=== PATIENT | female | born 1960 | race Caucasian/White ===

== ENCOUNTER → 2016-06-08 | Outpatient (CLI) | payer BC ==
[~2016-06-08] MED LIST: AMBIEN CR 12.12.5 MG PO; FLONASE NASAL S16 GM NS; HRT BASE; VALIUM 5MG T5 MG/TAB PO; WELLBUTRIN XL300 M1 PO; ZYRTEC 10MG10 MG PO
== END ==
LOC: MC.RAD 10:58
DX: Z12.31 Encounter for screening mammogram for malignant neoplasm of breast (principal)

== ENCOUNTER → 2016-11-24 | Outpatient (CLI) | payer BC | LOC: COL.RAD 10:43 | DX: R87.619 Unspecified abnormal cytological findings in specimens from cervix uteri (principal); R68.82 Decreased libido; G47.00 Insomnia, unspecified; E31.9 Polyglandular dysfunction, unspecified; R53.82 Chronic fatigue, unspecified; Z90.721 Acquired absence of ovaries, unilateral; Z79.890 Hormone replacement therapy ==

== ENCOUNTER 2017-01-31 14:06 | Emergency (ER) | payer BC ==
[~2017-01-31] VITALS: Ht 170.2 cm; Wt 88.6 kg
[2017-01-31 14:08] VITALS: BP 141/82; TEMP 99.1
[2017-01-31 15:41] VITALS: PULSE 80
== END 2017-01-31 15:41 | disposition home or self-care (01) ==
LOC: COL.ER 14:06
DX: M79.605 Pain in left leg (principal)

== ENCOUNTER → 2017-02-12 | Outpatient (CLI) | payer BC | LOC: COL.VAS 14:36 | DX: I36.1 Nonrheumatic tricuspid (valve) insufficiency (principal); I27.20 Pulmonary hypertension, unspecified; I51.7 Cardiomegaly; R60.0 Localized edema ==

== ENCOUNTER → 2017-06-15 | Outpatient (CLI) | payer BC | LOC: MC.RAD 10:02 | DX: Z12.31 Encounter for screening mammogram for malignant neoplasm of breast (principal) ==

== ENCOUNTER 2018-02-17 08:30 | Outpatient (RCR) | payer BC | END 2018-03-09 09:10 | disposition home or self-care (01) | LOC: WSOT 08:30 | DX: M25.531 Pain in right wrist (principal); M79.644 Pain in right finger(s) ==

== ENCOUNTER → 2018-07-05 | Outpatient (CLI) | payer BC | LOC: MC.RAD 13:22 | DX: Z12.31 Encounter for screening mammogram for malignant neoplasm of breast (principal) ==

== ENCOUNTER → 2018-10-07 | Outpatient (CLI) | payer BC | LOC: COL.RAD 14:45 | DX: R10.9 Unspecified abdominal pain (principal) ==

== ENCOUNTER → 2018-10-07 | Outpatient (CLI) | payer BC ==
[2018-10-07 13:11] LABS: ALBUMIN 4.2 gm/dL (3.5-5.0); BILIRUBIN,TOTAL 0.4 mg/dL (0.0-1.0); CREATININE, serum 0.89 (0.52-1.25)
[2018-10-07 14:45] LABS: BASO % 0.3 % (0.0-2.0); EOS # 0.1 (0.0-0.7); EOS % 0.9 % (0-4.0); GRAN # 6.5 (1.4-6.5); GRAN % 62.9 % (42.2-75.2); HEMATOCRIT 41.7 % (37.0-47.0); HEMOGLOBIN 14.2 g/dl (12.5-16.0); LYMPH # 3.1 (1.2-3.4); MEAN CELL VOLUME 88 fl (80.0-100.0); MEAN CORPUSCULAR HEMOGLOBIN 30 pg (27.0-31.0); MEAN CORPUSCULAR HGB CONC 34 g/dl (33.0-37.0); MEAN PLATELET VOLUME 9.7 fl (7.4-10.4); MONO # 0.6 (0.1-0.6); MONO % 5.6 % (1.7-9.3); PLATELET COUNT 376 K/mm3 (130-400); RED BLOOD COUNT 4.74 M/mm3 (4.10-5.30); REDCELL DISTRIBUTION WIDTH-CV 13.6 % (11.5-14.5)
== END ==
LOC: COL.LAB 12:23
PROVIDERS: Physician Assistant
DX: R10.811 Right upper quadrant abdominal tenderness (principal)

== ENCOUNTER → 2018-10-24 | Outpatient (CLI) | payer BC | LOC: COL.RAD 08:03 | DX: N95.0 Postmenopausal bleeding (principal); R93.89 Abnormal findings on diagnostic imaging of other specified body structures; R68.82 Decreased libido; F06.30 Mood disorder due to known physiological condition, unspecified; G47.00 Insomnia, unspecified; E31.9 Polyglandular dysfunction, unspecified; E55.9 Vitamin D deficiency, unspecified; F32.4 Major depressive disorder, single episode, in partial remission; Z79.890 Hormone replacement therapy; Z90.721 Acquired absence of ovaries, unilateral ==

== ENCOUNTER → 2019-10-10 | Outpatient (CLI) | payer BC | LOC: MC.RAD 09:27 | DX: Z12.31 Encounter for screening mammogram for malignant neoplasm of breast (principal); Z90.13 Acquired absence of bilateral breasts and nipples ==

== ENCOUNTER → 2020-10-15 | Outpatient (CLI) | payer BC ==
[~2020-10-15] MED LIST changes: +AMBIEN CR6.25 MG PO; +ASPIRIN E.C. 8181 MG PO; +CRESTOR40 MG PO; +ENDOMETRIN100 MG; +ESTRADIOL; +FLONASEALLERGY NS; +MAGNESIUM200 MG PO; +NP THYROID90 MG; +PLAVIX 75MG TAB75 MG PO; +TESTOSTERO; +THE MEDICINE S200 M2 PO; +VALIUM 2MG T2 MG/TAB PO; +VITAMIND3 5000 PO
== END ==
LOC: MC.RAD 09:45
DX: Z12.31 Encounter for screening mammogram for malignant neoplasm of breast (principal)

== ENCOUNTER 2021-01-23 16:13 | Emergency (ER) | payer BC ==
[~2021-01-23] VITALS: Ht 172.7 cm; Wt 90.9 kg
[~2021-01-23 16:13] MED LIST changes: -AMBIEN CR6.25 MG PO; -ASPIRIN E.C. 8181 MG PO; -CRESTOR40 MG PO; -ENDOMETRIN100 MG; -ESTRADIOL; -FLONASEALLERGY NS; -MAGNESIUM200 MG PO; -NP THYROID90 MG; -PLAVIX 75MG TAB75 MG PO; -TESTOSTERO; -THE MEDICINE S200 M2 PO; -VALIUM 2MG T2 MG/TAB PO; -VITAMIND3 5000 PO
[2021-01-23 16:19] VITALS: TEMP 98.5
[2021-01-23 16:34] LABS: BASO # 0.1 K/mm3 (0.0-0.2); BASO % 0.7 % (0.0-2.0); EOS # 0.2 K/mm3 (0.0-0.7); EOS % 2.4 % (0-4.0); GRAN # 4.3 K/mm3 (1.4-6.5); GRAN % 52.4 % (42.2-75.2); HEMOGLOBIN 13.9 g/dl (12.5-16.0); LYMPH # 3.2 K/mm3 (1.2-3.4); MEAN CELL VOLUME 88 fl (80.0-100.0); MEAN CORPUSCULAR HEMOGLOBIN 29 pg (27.0-31.0); MEAN CORPUSCULAR HGB CONC 33 g/dl (33.0-37.0); MEAN PLATELET VOLUME 9.2 fl (7.4-10.4); MONO # 0.5 K/mm3 (0.1-0.6); MONO % 6.3 % (1.7-9.3); PLATELET COUNT 372 K/mm3 (130-400); RED BLOOD COUNT 4.78 M/mm3 (4.10-5.30); REDCELL DISTRIBUTION WIDTH-CV 13.5 % (11.5-14.5)
[2021-01-23] MEDS ORDERED: VALIUM 2MG T2 MG/TAB PO (16:42)
[2021-01-23 16:55] LABS: ALANINE AMINOTRANSFERASE 15 U/L (0-55); ALBUMIN 4.3 gm/dL (3.4-4.8); ALKALINE PHOSPHATASE 52 U/L (0-750); ANION GAP 13 mmol/L (7-16); AST,SGOT 20 U/L (5-34); BILIRUBIN,TOTAL 0.3 mg/dL (0.2-1.2); BLOOD UREA NITROGEN 12 mg/dL (10-20); CALCIUM 9.7 mg/dL (8.4-10.2); CARBON DIOXIDE 21 mmol/L (23-31); CHLORIDE 106 mmol/L (98-107); CREATINE KINASE 36 U/L (29-168); CREATININE, serum 0.85 mg/dL (0.57-1.11); GLUCOSE 100 mg/dL (70-99); POTASSIUM 3.9 mmol/L (3.5-4.5); SODIUM 140 mmol/L (136-145); TOTAL PROTEIN 8.3 gm/dL (6.2-8.1)
[2021-01-23 17:04] LABS: TROPONIN-I < 0.010 ng/mL (0.00-0.033)
[2021-01-23 19:44] VITALS: BP 132/77; PULSE 63
[2021-03-07] MEDS ORDERED: ASPIRIN E.C. 8181 MG PO (10:15)
[2021-03-07] MEDS ORDERED: PLAVIX 75MG TAB75 MG PO (10:15)
[2021-03-07] MEDS ORDERED: CRESTOR40 MG PO (10:16)
[2021-03-07] MEDS ORDERED: FLONASEALLERGY NS (10:16)
[2021-03-07] MEDS ORDERED: NP THYROID90 MG (10:20)
[2021-03-07] MEDS ORDERED: AMBIEN CR6.25 MG PO (10:20)
[2021-03-07] MEDS ORDERED: TESTOSTERO (10:22)
[2021-03-07] MEDS ORDERED: ESTRADIOL (10:22)
[2021-03-07] MEDS ORDERED: MAGNESIUM200 MG PO (10:23)
[2021-03-07] MEDS ORDERED: THE MEDICINE S200 M2 PO (10:23)
[2021-03-07] MEDS ORDERED: VITAMIND3 5000 PO (10:24)
[2021-03-07] MEDS ORDERED: ENDOMETRIN100 MG (10:28)
== END 2021-01-23 19:44 | disposition home or self-care (01) ==
LOC: COL.ER 16:13
PROVIDERS: Emergency Medicine
DX: R07.2 Precordial pain (principal); R06.02 Shortness of breath; J45.909 Unspecified asthma, uncomplicated; Z79.899 Other long term (current) drug therapy
CPT/HCPCS: Q9967

== ENCOUNTER → 2021-02-21 | Outpatient (CLI) | payer BC ==
[~2021-02-21] MED LIST changes: +AMBIEN CR6.25 MG PO; +ASPIRIN E.C. 8181 MG PO; +CRESTOR40 MG PO; +ENDOMETRIN100 MG; +ESTRADIOL; +FLONASEALLERGY NS; +MAGNESIUM200 MG PO; +NP THYROID90 MG; +PLAVIX 75MG TAB75 MG PO; +TESTOSTERO; +THE MEDICINE S200 M2 PO; +VALIUM 2MG T2 MG/TAB PO; +VITAMIND3 5000 PO
== END ==
LOC: COL.RAD 13:08
DX: K57.30 Diverticulosis of large intestine without perforation or abscess without bleeding (principal)
CPT/HCPCS: Q9967

== ENCOUNTER → 2021-03-26 | Outpatient (CLI) | payer BC ==
[2021-03-26 19:30] LABS: ANION GAP 11 mmol/L (7-16); BLOOD UREA NITROGEN 8 mg/dL (10-20); CALCIUM 9.5 mg/dL (8.4-10.2); CARBON DIOXIDE 22 mmol/L (23-31); CHLORIDE 106 mmol/L (98-107); CREATININE, serum 0.84 mg/dL (0.57-1.11); GLUCOSE 89 mg/dL (70-99); POTASSIUM 3.6 mmol/L (3.5-4.5); SODIUM 139 mmol/L (136-145)
[2021-03-26 19:47] LABS: THYROID STIMULATING HORMONE 0.106 uIU/mL (0.350-4.940); TROPONIN-I < 0.010 ng/mL (0.00-0.033)
== END ==
LOC: ZCOL.LAB 18:13
PROVIDERS: Internal Medicine Interventional Cardiology
DX: R07.89 Other chest pain (principal)

== ENCOUNTER 2021-09-11 14:00 | Outpatient (RCR) | payer BC | END 2021-09-16 | disposition still patient (30) | LOC: WSOT | DX: G62.9 Polyneuropathy, unspecified (principal) ==

== ENCOUNTER 2021-10-09 15:45 | Outpatient (RCR) | payer BC | END 2021-10-16 | disposition home or self-care (01) | LOC: WSOT | DX: G62.9 Polyneuropathy, unspecified (principal) ==

== ENCOUNTER → 2021-10-16 | Outpatient (CLI) | payer BC | LOC: MC.RAD 15:30 | DX: Z12.31 Encounter for screening mammogram for malignant neoplasm of breast (principal) ==

== ENCOUNTER 2021-10-17 12:33 | Outpatient (RCR) | payer BC | END 2021-11-16 | disposition home or self-care (01) | LOC: WSOT | DX: G62.9 Polyneuropathy, unspecified (principal) ==

== ENCOUNTER → 2021-10-30 | Outpatient (CLI) | payer BC ==
[2021-10-30 15:20] LABS: CALCIUM 9.4 mg/dL (8.4-10.2); CREATININE, serum 0.78 mg/dL (0.57-1.11); POTASSIUM 3.9 mmol/L (3.5-4.5)
== END ==
LOC: COL.RAD 14:26
PROVIDERS: Family Medicine
DX: R42 Dizziness and giddiness (principal)

== ENCOUNTER 2021-12-26 09:32 | Outpatient (CLI) | payer BC ==
[~2021-12-26 09:32] MED LIST changes: -MAGNESIUM200 MG PO; -THE MEDICINE S200 M2 PO; -VITAMIND3 5000 PO
[2021-12-26 10:20] VITALS: BP 124/84; PULSE 107; TEMP 98
[2021-12-26 10:30] VITALS: BP 93/77; PULSE 103
[2021-12-26 10:45] VITALS: BP 121/83; PULSE 95
[2021-12-26 11:00] VITALS: BP 111/68; PULSE 92
[2021-12-26 11:15] VITALS: BP 117/84; PULSE 94
[2021-12-26] MEDS ORDERED: VALTREX1 GM PO (12:15)
[2021-12-26] MEDS ORDERED: LASIX 20MG TABL20 MG PO (12:15)
[2021-12-26] MEDS ORDERED: VALIUM 5MG T5 MG/TAB PO (12:16)
[2021-12-26] MEDS ORDERED: PROAIR HFA0.09 MG/AC IH (12:16)
[2021-12-26] MEDS ORDERED: PREDNISONE20 MG PO (12:17)
[2021-12-26] MEDS ORDERED: VITAMIND3 5000 PO (12:18)
[2021-12-26] MEDS ORDERED: MAGNESIUM200 MG PO (12:18)
[2021-12-26] MEDS ORDERED: THE MEDICINE S200 M2 PO (12:18)
== END 2021-12-26 13:13 ==
LOC: EUO 09:32
DX: U07.1 COVID-19 (principal)
CPT/HCPCS: M0222; Q0222

== ENCOUNTER → 2022-02-13 | Outpatient (CLI) | payer BC ==
[~2022-02-13] MED LIST changes: +LASIX 20MG TABL20 MG PO; +MAGNESIUM200 MG PO; +PREDNISONE20 MG PO; +PROAIR HFA0.09 MG/AC IH; +THE MEDICINE S200 M2 PO; +VALTREX1 GM PO; +VITAMIND3 5000 PO
== END ==
LOC: COL.RAD 08:12
DX: M47.812 Spondylosis without myelopathy or radiculopathy, cervical region (principal); R27.0 Ataxia, unspecified; H93.19 Tinnitus, unspecified ear; G43.809 Other migraine, not intractable, without status migrainosus; R29.898 Other symptoms and signs involving the musculoskeletal system
CPT/HCPCS: A9575

== ENCOUNTER 2022-07-12 21:34 | Observation (INO) | payer BC ==
[~2022-07-12] VITALS: Ht 172.7 cm; Wt 90.9 kg
[2022-07-12 21:56] LABS: BASO # 0.1 K/mm3 (0.0-0.2); BASO % 1.1 % (0.0-2.0); EOS # 0.2 K/mm3 (0.0-0.7); EOS % 2.8 % (0.0-4.0); GRAN # 5.3 K/mm3 (1.4-6.5); GRAN % 66.4 % (42.2-75.2); HEMATOCRIT 40.9 % (37.0-47.0); HEMOGLOBIN 14.3 g/dl (12.5-16.0); LYMPH # 1.7 K/mm3 (1.2-3.4); LYMPH % 21.1 % (20.0-51.0); MEAN CELL VOLUME 86 fl (80.0-100.0); MEAN CORPUSCULAR HEMOGLOBIN 30 pg (27-31); MEAN CORPUSCULAR HGB CONC 35 g/dl (33.0-37.0); MEAN PLATELET VOLUME 9.1 fl (7.4-10.4); MONO # 0.7 K/mm3 (0.1-0.6); MONO % 8.3 % (1.7-9.3); PLATELET COUNT 312 K/mm3 (130-400); RED BLOOD COUNT 4.75 M/mm3 (4.10-5.30); REDCELL DISTRIBUTION WIDTH-CV 13.2 % (11.5-14.5)
[2022-07-12 22:13] LABS: ALANINE AMINOTRANSFERASE 27 U/L (0-55); ALBUMIN 4.3 gm/dL (3.4-4.8); ALKALINE PHOSPHATASE 66 U/L (40-150); ANION GAP 13 mmol/L (7-16); AST,SGOT 22 U/L (5-34); BILIRUBIN,TOTAL 0.3 mg/dL (0.2-1.2); BLOOD UREA NITROGEN 12 mg/dL (10-20); C-REACTIVE PROTEIN 0.29 mg/dL (0.00-0.50); CALCIUM 9.8 mg/dL (8.4-10.2); CARBON DIOXIDE 16 mmol/L (23-31); CHLORIDE 108 mmol/L (98-107); CREATININE, serum 0.94 mg/dL (0.57-1.11); GLUCOSE 119 mg/dL (70-99); POTASSIUM 3.8 mmol/L (3.5-4.5); SODIUM 137 mmol/L (136-145); TOTAL PROTEIN 8.2 gm/dL (6.2-8.1)
[2022-07-12 22:21] LABS: TROPONIN-I < 0.010 ng/mL (0.00-0.033)
[2022-07-12] MEDS ORDERED: CRESTOR20 MG PO (23:52)
[2022-07-12] MEDS ORDERED: PRINIVIL5 MG PO (23:52)
[2022-07-12] MEDS ORDERED: NP THYROID15 MG PO (23:52)
[2022-07-12] MEDS ORDERED: NP THYROID60 MG PO (23:53)
[2022-07-12] MEDS ORDERED: MAG-OX 400400 MG/TAB PO (23:57)
--- NOTE | 2022-07-13 00:57 | NUR ---
pt brought to room via wheelchair from ED. pt ambulates w walker, steady gate. cough is present.
[2022-07-13 01:02] VITALS: BP 147/81; PULSE 125; TEMP 98.2
--- NOTE | 2022-07-13 01:51 | NUR ---
admission assessment complete. pt has a nonproductive cough that has been present for about a week. pt uses a walker due to vertigo symptoms. fall precautions in place. droplet precautions implemented due to parainfluenza. IV fluids infusing into right ac. call light in reach.
[2022-07-13 02:02] LABS: MAGNESIUM 2.2 mg/dL (1.6-2.6); PHOSPHOROUS 3.2 mg/dL (2.3-4.7)
[2022-07-13 02:43] LABS: SQUAMOUS EPITHELIAL 0-2 /hpf (0-10); URINE BACTERIA Rare /hpf (NONE SEEN); URINE RBC 0-2 /hpf (0-2)
[2022-07-13 02:45] LABS: COLLECTION METHOD CLEAN CATCH; URINE APPEARANCE Clear (CLEAR/HAZY); URINE COLOR Yellow (YELLOW)
[2022-07-13 02:46] LABS: URINE BLOOD 1+ (NEGATIVE); URINE GLUCOSE 2+ (NEGATIVE); URINE KETONE 1+ (NEGATIVE); URINE NITRATE Negative (NEGATIVE); URINE PROTEIN(semi-quant) Negative (NEGATIVE); URINE UROBILINOGEN 0.2 E.U/dL (0.2-1.0)
[2022-07-13 03:34] VITALS: BP 125/60; PULSE 105; TEMP 97.9
[2022-07-13 06:18] LABS: HEMOGLOBIN 12.4 g/dl (12.5-16.0); MEAN CELL VOLUME 86 fl (80.0-100.0); MEAN CORPUSCULAR HEMOGLOBIN 30 pg (27-31); MEAN CORPUSCULAR HGB CONC 35 g/dl (33.0-37.0); MEAN PLATELET VOLUME 9.4 fl (7.4-10.4); PLATELET COUNT 283 K/mm3 (130-400); RED BLOOD COUNT 4.14 M/mm3 (4.10-5.30); REDCELL DISTRIBUTION WIDTH-CV 13.2 % (11.5-14.5)
[2022-07-13 06:26] LABS: HEMATOCRIT 35.6 % (37.0-47.0)
[2022-07-13 06:33] LABS: CREATININE, serum 0.8 mg/dL (0.57-1.11); POTASSIUM 3.7 mmol/L (3.5-4.5)
[2022-07-13 07:55] LABS: BAND 2 % (0-10); LYMPHOCYTE 14 % (20.0-51.0); NEUTROPHILS 84 % (42.0-75.2)
[2022-07-13 07:56] LABS: PLATELET ESTIMATE NORMAL (NORMAL)
[2022-07-13 08:22] VITALS: BP 142/82; PULSE 95; TEMP 98
--- NOTE | 2022-07-13 09:00 | NUR ---
Pt. sitting up in bed. Pt. is A&OX3, assessment complete. IV to rt. ac patent. Pt. reports headache paing, giving Tylenol. Pt. denies further needs, call light within reach.
--- NOTE | 2022-07-13 10:03 | NUR ---
ELANA completed intake by phone due to isolation status. Pt confirmed living in [place] at home with spouse Greg Singh who is also listed as NOK. Pt confirmed Greg's contact number being [phone]. Pt reported having about 12 steps throughout the home and reports being independent "normally" minus presence of vertigo. Pt reports having challenges with this since November 08 and as a result has been using a walker to get around. Pt denies any other DME. Pt reports Dr as Dr. Branham and pharmacy as [facility]. Pt denies any issues retrieving medication or financial challenges. Pt does not have DPOA and requested paperwork to complete. SW explained tending ELANA Arcos would be able to get the paperwork to her and would need 2 witnesses to sign. SW called NOK Greg Singh ([phone]) at [id number]. Greg confirmed information above.
[2022-07-13 12:23] VITALS: BP 131/66; PULSE 94; TEMP 97.9
[2022-07-13 15:36] VITALS: BP 136/65; PULSE 93; TEMP 97.7
[2022-07-13 21:03] VITALS: BP 152/72; PULSE 78; TEMP 98
[2022-07-14 05:26] VITALS: BP 110/66; PULSE 92; TEMP 97.4
[2022-07-14 08:00] VITALS: BP 114/65; PULSE 86; TEMP 97.8
--- NOTE | 2022-07-14 09:00 | NUR ---
Patient is sitting up on the side of the bed finishin breakfast. VSS. Continues cough. Assessment completed, will be taken for a ribss cxr. To be discharged today.
[2022-07-14] MEDS ORDERED: RT ADVAIR HFA 2312 G IH (09:15)
[2022-07-14] MEDS ORDERED: PREDNISONE20 MG PO (09:21)
[2022-07-14] MEDS ORDERED: TESSALON P100 MG/CAP PO (09:22)
--- NOTE | 2022-07-14 10:52 | NUR ---
The patient is to tentatively discharge back home with her today, 07/14. No additional needs at this time.
[2022-07-14 11:37] VITALS: BP 119/67; PULSE 82; TEMP 98
--- NOTE | 2022-07-14 14:30 | NUR ---
Patient was provided with discharge information. IV access and telemetry were discontinued. All questions answered. Pt taken to the entrance by wheelchair.
== END 2022-07-14 14:30 | disposition home or self-care (01) ==
LOC: COL.ER 21:34 → MEDICAL 07-13 00:09
PROVIDERS: Emergency Medicine; Nurse Practitioner Family; ADMIT Internal Medicine
DX: J45.901 Unspecified asthma with (acute) exacerbation (principal); B97.89 Other viral agents as the cause of diseases classified elsewhere; J12.2 Parainfluenza virus pneumonia; R00.0 Tachycardia, unspecified; E78.5 Hyperlipidemia, unspecified; I25.10 Atherosclerotic heart disease of native coronary artery without angina pectoris; R42 Dizziness and giddiness; E03.9 Hypothyroidism, unspecified; G47.09 Other insomnia; Z95.5 Presence of coronary angioplasty implant and graft; Z79.899 Other long term (current) drug therapy; Z79.890 Hormone replacement therapy
CPT/HCPCS: G0378; J1650; J2920; J2930; J7030; J7120

== ENCOUNTER 2022-08-22 19:28 | Inpatient (IN) | payer BC ==
[~2022-08-22] VITALS: Ht 172.7 cm; Wt 93.7 kg
[~2022-08-22 19:28] MED LIST changes: +CRESTOR20 MG PO; +MAG-OX 400400 MG/TAB PO; +NP THYROID15 MG PO; +NP THYROID60 MG PO; +PERCOCET 325 MG1 TA2 PO; +PRINIVIL5 MG PO; +RT ADVAIR HFA 2312 G IH; +TESSALON P100 MG/CAP PO
[2022-08-22 20:10] LABS: COLLECTION METHOD CLEAN CATCH
[2022-08-22 20:14] LABS: BASO # 0.1 K/mm3 (0.0-0.2); BASO % 0.6 % (0.0-2.0); EOS # 0.1 K/mm3 (0.0-0.7); EOS % 0.9 % (0.0-4.0); GRAN # 8.2 K/mm3 (1.4-6.5); GRAN % 65.1 % (42.2-75.2); HEMATOCRIT 38.5 % (37.0-47.0); HEMOGLOBIN 13.3 g/dl (12.5-16.0); LYMPH # 3.2 K/mm3 (1.2-3.4); LYMPH % 25.4 % (20.0-51.0); MEAN CELL VOLUME 87 fl (80.0-100.0); MEAN CORPUSCULAR HEMOGLOBIN 30 pg (27-31); MEAN CORPUSCULAR HGB CONC 35 g/dl (33.0-37.0); MEAN PLATELET VOLUME 9.1 fl (7.4-10.4); MONO % 7.8 % (1.7-9.3); PLATELET COUNT 336 K/mm3 (130-400); RED BLOOD COUNT 4.43 M/mm3 (4.10-5.30)
[2022-08-22 20:19] LABS: MUCOUS Present (NOT PRESENT); SQUAMOUS EPITHELIAL None Seen /hpf (0-10); URINE BACTERIA Rare /hpf (NONE SEEN)
[2022-08-22 20:23] LABS: PH 5.5 (5.0-8.5); URINE APPEARANCE Clear (CLEAR/HAZY); URINE BLOOD 1+ (NEGATIVE); URINE COLOR Yellow (YELLOW); URINE GLUCOSE Negative (NEGATIVE); URINE KETONE Negative (NEGATIVE); URINE NITRATE Negative (NEGATIVE); URINE PROTEIN(semi-quant) Negative (NEGATIVE); URINE UROBILINOGEN 0.2 E.U/dL (0.2-1.0)
[2022-08-22 20:37] LABS: ALBUMIN 3.9 gm/dL (3.4-4.8); BILIRUBIN,TOTAL 0.4 mg/dL (0.2-1.2); C-REACTIVE PROTEIN 1.96 mg/dL (0.00-0.50); CALCIUM 9.7 mg/dL (8.4-10.2); CREATININE, serum 0.82 mg/dL (0.57-1.11); POTASSIUM 3.6 mmol/L (3.5-4.5); TOTAL PROTEIN 7.7 gm/dL (6.2-8.1)
[2022-08-23] VITALS (11 sets, daily range): BP systolic 93–128; BP diastolic 54–64; PULSE 69–88; TEMP 97.9–98.6
--- NOTE | 2022-08-23 02:51 | NUR ---
Patient arrived to the floor at 0110 via stretcher, with IV infusing well on left AC, A/Ox4, head to toe assessment done, hospital policies orientated, reports pain to abdomen rated at 7/10, denies the need for pain meds at this time, called Rupa, the PA and she can take ambien with sips of water, denies further needs, call light and personal items within reach, will continue to monitor.
--- NOTE | 2022-08-23 06:15 | NUR ---
Patient reports pain, didn't rate the pain, fentanyl given per report, offered heating pad to help with the pain, she said she will try, will continue to monitor.
[2022-08-23 06:33] LABS: BASO # 0.1 K/mm3 (0.0-0.2); BASO % 0.4 % (0.0-2.0); EOS # 0.1 K/mm3 (0.0-0.7); EOS % 1.1 % (0.0-4.0); GRAN # 7.7 K/mm3 (1.4-6.5); GRAN % 65.9 % (42.2-75.2); LYMPH # 2.8 K/mm3 (1.2-3.4); LYMPH % 24.3 % (20.0-51.0); MEAN CELL VOLUME 89 fl (80.0-100.0); MEAN CORPUSCULAR HGB CONC 34 g/dl (33.0-37.0); MEAN PLATELET VOLUME 9.6 fl (7.4-10.4); MONO # 0.9 K/mm3 (0.1-0.6); MONO % 8.1 % (1.7-9.3); PLATELET COUNT 277 K/mm3 (130-400); RED BLOOD COUNT 3.78 M/mm3 (4.10-5.30); REDCELL DISTRIBUTION WIDTH-CV 13.2 % (11.5-14.5)
[2022-08-23 06:41] LABS: CALCIUM 8.6 mg/dL (8.4-10.2); CHOLESTEROL RISK RATIO 2.3; CREATININE, serum 0.8 mg/dL (0.57-1.11); POTASSIUM 3.8 mmol/L (3.5-4.5)
[2022-08-23 07:02] LABS: HEMATOCRIT 33.5 % (37.0-47.0); HEMOGLOBIN 11.3 g/dl (12.5-16.0); MEAN CORPUSCULAR HEMOGLOBIN 30 pg (27-31)
--- NOTE | 2022-08-23 09:51 | NUR ---
PATIENT ALERT AND ORIENTED X4. VSS. PATIENT HERE FOR ABDOMINAL PAIN X1 WEEK WITH N/V. PATIENT DENIES NAUSEA AT THIS TIME. PATIENT REPORTS PAIN 7/10, REQUESTS PAIN MEDICATION. BOWEL SOUNDS HYPOACTIVE IN ALL QUADRANTS. IV TO LEFT AC WITH NS/20MEQ KCL RUNNING AT 125/HOUR. PATIENT AMBULATED TO BATHROOM AND VOIDING. PATIENT DENIES PASSING OF ANY GAS. PATIENT RESTING IN BED, CALL LIGHT IN REACH.
--- NOTE | 2022-08-23 14:41 | NUR ---
SW met with pt to complete intake. pt reports she lives at home with her , Greg [phone] and is independent on all ADLs and does not use any DME. PCP is Jason Bear and gets medications from [facility]. Pt not interested in DPOA-HC at this time. No other needs at this time. SW await for further recommendations and follow up as needed. DC: Home.
[2022-08-23 16:38] LABS: COLLECTION METHOD CLEAN CATCH
[2022-08-23 16:46] LABS: AMYLASE 32 U/L (25-125); LIPASE 15 U/L (8-78)
[2022-08-23 16:58] LABS: SQUAMOUS EPITHELIAL 0-2 /hpf (0-10); URINE BACTERIA None Seen /hpf (NONE SEEN); URINE RBC 0-2 /hpf (0-2)
[2022-08-23 17:01] LABS: URINE APPEARANCE Clear (CLEAR/HAZY); URINE BLOOD Negative (NEGATIVE); URINE COLOR Yellow (YELLOW); URINE GLUCOSE Negative (NEGATIVE); URINE KETONE Negative (NEGATIVE); URINE NITRATE Negative (NEGATIVE); URINE PROTEIN(semi-quant) Negative (NEGATIVE); URINE UROBILINOGEN 0.2 (NEGATIVE)
--- NOTE | 2022-08-23 17:43 | NUR ---
PAIN MEDICATION REGIMEN CHANGED, PER DR. GONZALEZ'S ORDERS. PATIENT REPORTS PAIN HAS INCREASED. PATIENT REFUSED DINNER, TOLERATING CLEARS. PATIENT DENIES PASSING ANY GAS. PATIENT REPORTS BURNING WITH URINATION AND INCREASED LEFT FLANK PAIN. DR GONZALEZ AWARE.
[2022-08-24] VITALS (8 sets, daily range): BP systolic 103–120; BP diastolic 55–65; PULSE 67–75; TEMP 97.7–98.2
[2022-08-24 06:26] LABS: BASO # 0.1 K/mm3 (0.0-0.2); EOS # 0.2 K/mm3 (0.0-0.7); EOS % 3.3 % (0.0-4.0); GRAN # 2.7 K/mm3 (1.4-6.5); HEMOGLOBIN 11.4 g/dl (12.5-16.0); LYMPH # 2.6 K/mm3 (1.2-3.4); LYMPH % 43.6 % (20.0-51.0); MEAN CELL VOLUME 87 fl (80.0-100.0); MEAN CORPUSCULAR HEMOGLOBIN 30 pg (27-31); MEAN CORPUSCULAR HGB CONC 35 g/dl (33.0-37.0); MEAN PLATELET VOLUME 9.4 fl (7.4-10.4); MONO # 0.5 K/mm3 (0.1-0.6); MONO % 7.9 % (1.7-9.3); PLATELET COUNT 279 K/mm3 (130-400); RED BLOOD COUNT 3.81 M/mm3 (4.10-5.30); REDCELL DISTRIBUTION WIDTH-CV 13.2 % (11.5-14.5)
[2022-08-24 06:45] LABS: CALCIUM 8.8 mg/dL (8.4-10.2); CREATININE, serum 0.79 mg/dL (0.57-1.11); MAGNESIUM 2.1 mg/dL (1.6-2.6); PHOSPHOROUS 3.8 mg/dL (2.3-4.7)
--- NOTE | 2022-08-24 09:08 | NUR ---
Pt doing okay, reports that she feels better. Assisted pt to the restroom. She is refusing to use her cane and refuses for me to put on the gait belt. She is acting weak, unable to stand and grabs at everything as she walks. Pt also reports that she is too weak to put her legs up in the bed. Will look to see if PT/OT are ordered. Pt refused to eat any breakfast. Pt does have family in the room. She has complaints of pain to her LLQ. No other needs, call light within reach.
--- NOTE | 2022-08-24 11:43 | NUR ---
Pts gait remains unsteady, continues to refuse the gait belt or to use her cane. Discussed how concerned I am with her unsteady gait. Pt just looked at be blankly. Pt continues to struggle with getting in and out of bed which she reports is due to her pain. Pt does state that her pain is tolerable though at this time. Pt not taking in much for fluids
--- NOTE | 2022-08-24 13:09 | NUR ---
Initial visit: Armhole Presser stopped by room on rounds. Pt was resting and content with daughter in the room. Pt has no needs right now. Armhole Presser will follow up as needed.
--- NOTE | 2022-08-24 15:45 | NUR ---
Pt upset that her bed alarm is on. She states that it triggers migraines. Educated that it is there for safety due to her unsteady gait, pain and the IV fluids she has infusing. Pt looked at me blankly. Informed her I would run it by my supervisor [employer] which I did. She also stated bed alarm needed to stay on. Pt now will not speak or make eye contact with me. Educated for her to use her call light when she needs to get up and that we can silence the alarm before it goes off. Call light within reach
--- NOTE | 2022-08-24 16:00 | NUR ---
Educated pt that she can have low fiber diet, pt reported that she knows how to order
--- NOTE | 2022-08-24 18:13 | NUR ---
Pt still not talking with me, upset about having the bed alarm on. Pt reports that she is feeling sick because she forced herself to eat so that she can go home. Educated that forcing herself to eat when her body isn't ready will only prolong getting better. Pt had no comment. Call light within reach, spouse at bedside
[2022-08-25] VITALS: BP 105/59; PULSE 70; TEMP 98.4
[2022-08-25 04:00] VITALS: BP 121/65; PULSE 71; TEMP 98.7
[2022-08-25 07:34] LABS: BASO # 0.1 K/mm3 (0.0-0.2); BASO % 0.8 % (0.0-2.0); EOS # 0.2 K/mm3 (0.0-0.7); EOS % 3.5 % (0.0-4.0); GRAN # 2.5 K/mm3 (1.4-6.5); GRAN % 42.7 % (42.2-75.2); HEMOGLOBIN 11.9 g/dl (12.5-16.0); LYMPH # 2.7 K/mm3 (1.2-3.4); LYMPH % 45.2 % (20.0-51.0); MEAN CELL VOLUME 86 fl (80.0-100.0); MEAN CORPUSCULAR HEMOGLOBIN 30 pg (27-31); MEAN CORPUSCULAR HGB CONC 35 g/dl (33.0-37.0); MEAN PLATELET VOLUME 9.4 fl (7.4-10.4); MONO # 0.5 K/mm3 (0.1-0.6); MONO % 7.6 % (1.7-9.3); PLATELET COUNT 314 K/mm3 (130-400); RED BLOOD COUNT 3.98 M/mm3 (4.10-5.30); REDCELL DISTRIBUTION WIDTH-CV 12.9 % (11.5-14.5)
[2022-08-25 07:35] LABS: HEMATOCRIT 34.3 % (37.0-47.0)
[2022-08-25 07:45] VITALS: BP 111/65; PULSE 74; TEMP 98.6
[2022-08-25 07:47] LABS: ALBUMIN 3.1 gm/dL (3.4-4.8); CALCIUM 9.1 mg/dL (8.4-10.2); CREATININE, serum 0.8 mg/dL (0.57-1.11); MAGNESIUM 2.1 mg/dL (1.6-2.6); PHOSPHOROUS 3.8 mg/dL (2.3-4.7)
[2022-08-25 08:00] VITALS: BP_SYST 111
[2022-08-25] MEDS ORDERED: ZOFRAN ODT4 MG PO (08:38)
[2022-08-25] MEDS ORDERED: CIPRO 500MG TA500 MG PO ×2 (08:39)
--- NOTE | 2022-08-25 09:39 | NUR ---
PATIENT ALERT AND ORIENTED X3. PAIN UNDER CONTROL. DISCHARGING TODAY.
[2022-08-25] MEDS ORDERED: PERCOCET 325 MG1 TA2 PO (15:11)
== END 2022-08-25 11:36 | disposition home or self-care (01) | DRG 872 ==
LOC: COL.ER 19:28 → SURG 08-23 00:19
PROVIDERS: Internal Medicine; Nurse Practitioner; Nurse Practitioner Family; ADMIT Internal Medicine
DX: A41.9 Sepsis, unspecified organism (principal); E87.20 Acidosis, unspecified; K57.32 Diverticulitis of large intestine without perforation or abscess without bleeding; E78.5 Hyperlipidemia, unspecified; I10 Essential (primary) hypertension; J45.909 Unspecified asthma, uncomplicated; E87.6 Hypokalemia; R42 Dizziness and giddiness; E03.9 Hypothyroidism, unspecified; G47.00 Insomnia, unspecified; I25.10 Atherosclerotic heart disease of native coronary artery without angina pectoris; E87.8 Other disorders of electrolyte and fluid balance, not elsewhere classified; Z95.5 Presence of coronary angioplasty implant and graft; Z23 Encounter for immunization; Z88.1 Allergy status to other antibiotic agents; Z88.5 Allergy status to narcotic agent; Z88.8 Allergy status to other drugs, medicaments and biological substances; Z79.899 Other long term (current) drug therapy; Z79.891 Long term (current) use of opiate analgesic
CPT/HCPCS: J1170; J1650; J2405; J2543; J3010; J3480; J7030; Q9967

== ENCOUNTER → 2024-01-11 | Outpatient (CLI) | payer MEDICARE ==
[~2024-01-11] MED LIST changes: +ASPIRIN 81M81 MG/TA2 PO; +CEFTIN500 MG PO; +CIPRO 500MG TA500 MG PO; +ENDOMETRIN100 MG VG; +FLAGYL500 MG PO; +MIRALAX PA17 GM/Dose PO; +PYRIDIUM 100MG100 MG PO; +ROXICODONE 55 MG/TAB PO; +WALKER MC; +ZOFRAN ODT4 MG PO
== END ==
LOC: MC.RAD 10:44
DX: Z12.31 Encounter for screening mammogram for malignant neoplasm of breast (principal)